=== PATIENT | female | born 1965 ===

== ENCOUNTER 2018-04-04 05:58 | Day surgery (SDC) | payer MEDICAID ==
[2018-03-31 09:36] VITALS: BMI 24.0
[2018-04-04] MEDS ORDERED: Lactated Ringer's 1,000 ML IV ONE (06:52)
--- NOTE | 2018-04-04 07:12 | CP.SDSHP ---
Same Day Surgery H & P - History Proposed Procedure: Right foot 5th digit excision of osteophyte Pre-Op Diagnosis: Painful right 5th digit - Previous Medical/Surgical History Pulmonary: Asthma - Allergies Allergies: Allergies Sulfa (Sulfonamide Antibiotics) Allergy (Verified 02/05/17 18:51) - Physical Exam Vital Signs: Vital Signs 04/04/18 04/04/18 06:31 06:34 Temperature 98.4 F Pulse Rate 74 74 Respiratory 20 Rate Blood Pressure 128/76 O2 Sat by Pulse 100 Oximetry - {Optional Preform as Required} Ortho: Other - Date & Time Date: 04/04/18 Time: 07:12 Short Stay Discharge - Short Stay Discharge Admitting Diagnosis/Reason for Visit: M25.774 / M25.775/ Disposition: HOME/ ROUTINE Referrals: Ishaan Lozano [Primary Care Provider] - Additional Instructions (Diet, Activity): -Patient in good/stable condition for discharge home. Pt to resume medications per medical reconciliation. Resume regular diet. Please keep dressing clean, dry, & intact to surgical site, use plastic bag over bandage for showering, wear post op shoe at all times when ambulating, call clinic if you see signs of infection (redness, swelling, malodor), please make an appointment to see Dr. Weber in office/clinic within 1 week for post-op check. Progress Note/Discharge Note with Instructions: Pt was seen and examined in [facility] Pt NPO status was confirmed All Pre-op testing and clearance was in the chart Pt has exhausted all conservative treatment at this time and is opting for surgical intervention Pt was explained procedure and post-operative course All pt's questions were answered to satisfaction No guarantees were made Pt understands all risks, benefits and complications of procedure Pt will follow-up with Dr. Weber
--- NOTE | 2018-04-04 07:14 | CP.PCM.PN ---
Subjective - Date & Time of Evaluation Date of Evaluation: 04/04/18 Time of Evaluation: 07:12 - Subjective Subjective: Podiatry [facility] note: Dr. Weber 52 year old female with PMHx of Asthma was seen and evaluated at bedside in [facility] prior to right foot 5th digit procedure. Patient reports that she has been NPO since 9 pm yesterday. Denies of any adverse reactions to anesthesia. Denies recent F/N/V/C/SOB/CP/headache/diarrhea/constipation. Denies of any other pedal complains. PMHx: Asthma PSHx: x 4 Allergies: Sulfa SHx: denies smoking, EtOH or illicit drug usage Objective - Vital Signs/Intake and Output Vital Signs (last 24 hours): Temp Pulse Resp BP Pulse Ox 98.4 F 74 20 128/76 100 04/04/18 06:31 04/04/18 06:34 04/04/18 06:31 04/04/18 06:31 04/04/18 06:31 - Constitutional Appears: Well, Non-toxic, No Acute Distress - Extremities Exam Additional comments: Bilateral LE focused exam: VASC: DP/PT pulses are palpable 2/4 B/L. Cap refill time: < 3 seconds to all digits. Skin temperature warm to cool from proximal to distal. no pitting or non -pitting edema noted DERM: no onen lesions, no inter digital maceration, nails are cut to hygienic length, no clinical suspicion of active infection NEURO: Epicritic and protective sensation intact ORTHO: mild tenderness on palpation of the 5th digit medially as well as laterally on the 4th digit, no pain during AROM and PROM at the AJ or MTPJ - Neurological Exam Neurological Exam: Alert, Awake, Oriented x3 - Psychiatric Exam Psychiatric exam: Normal Affect, Normal Mood Assessment and Plan - Assessment and Plan (Free Text) Assessment: 52 year old female with PMHx of Asthma was seen in [facility] prior to right foot 5th digit procedure. Plan: Pt was seen and examined in [facility] Pt NPO status was confirmed All Pre-op testing and clearance was in the chart Pt has exhausted all conservative treatment at this time and is opting for surgical intervention Pt was explained procedure and post-operative course All pt's questions were answered to satisfaction No guarantees were made Pt understands all risks, benefits and complications of procedure Pt will follow-up with Dr. Weber
[2018-04-04] MEDS ORDERED: Bupivacaine 0.5% Inj(30mL) IJ ONE ×2 (07:18→08:00)
[2018-04-04] MEDS ORDERED: Lidocaine 1% Inj (20ml) IJ ONE (07:18)
[2018-04-04] MEDS ORDERED: Sodium Chloride 0.9% 1,000 ML IV SCH (07:30)
[2018-04-04] MEDS ORDERED: Midazolam 2 MG/2 ML VIAL ONE (07:43)
[2018-04-04] MEDS ORDERED: Propofol 10 mg/ml Inj (20 ML) ONE (07:44)
[2018-04-04] MEDS ORDERED: ceFAZolin 2 GM in Sodium Chloride 0.9% 100 ML IVPB ONE (07:45)
[2018-04-04] MEDS ORDERED: Bupivacaine 0.5% Inj(30mL) ONE (07:47)
[2018-04-04] MEDS ORDERED: Lidocaine 2% Inj (20ml) IJ ONE (08:00)
[2018-04-04] MEDS ORDERED: Oxycodone/Acetaminophen 5/325 mg Tab PO PRN ×2 (08:26)
--- NOTE | 2018-04-04 08:30 | PCM.SURG1 ---
Surgeon's Initial Post Op Note - Surgeon's Notes Surgeon: Dr. Alexandre Weber DPM Cook Candy: Dr. Leandro Samaniego DPM PGY-2 Type of Anesthesia: IV Sedation, Local Anesthesia Administered By: Dr. Taya ASH Pre-Operative Diagnosis: Right foot 4th and 5th digit exastosis Operative Findings: See dictation. M: 4-0 Monocryl. I: 6 cc of 1:1 1% lidocaine plain:0.5% Marcaine plain - pre-op Post-Operative Diagnosis: Same Operation Performed: right foot 4th and 5th digit exostectomy Specimen/Specimens Removed: none Estimated Blood Loss: EBL {In ML}: 0 Blood Products Given: N/A Drains Used: No Drains Post-Op Condition: Good Date of Surgery/Procedure: 04/04/18 Time of Surgery/Procedure: 08:30
[2018-04-04] MEDS ORDERED: Lactated Ringer's 500 ML IV SCH (08:45)
[2018-04-04 09:40] VITALS: RESP 18; O2SAT 96
[2018-04-04 10:23] VITALS: BP 121/69; PULSE 89; TEMP 97.8
--- NOTE | 2018-04-06 01:42 | OP ---
PROCEDURE DATE: 04/04/[address] Leandro Samaniego, PGY-2 dictating on behalf of Alexandre Whitt DPM. PREOPERATIVE DIAGNOSES: 1. Left foot fourth digit exostosis, lateral aspect medial phalanx. 2. Left foot fifth digit exostectomy, medial aspect distal phalanx. POSTOPERATIVE DIAGNOSES: 1. Left foot fourth digit exostosis, lateral aspect medial phalanx. 2. Left foot fifth digit exostectomy, medial aspect distal phalanx. PROCEDURE PREFORMED: 1. Left fourth digit exostectomy. 2. Left fifth digit exostectomy. PRIMARY SURGEON: Alexandre Whitt DPM. SOCIAL STAFF WORKER: Leandro Samaniego, PGY-2. TYPE OF ANESTHESIA: MAC IV sedation with local. ANESTHESIA ADMINISTERED BY: Seamus Bain MD INDICATIONS: The patient is a 52-year-old female with the above stated diagnoses. The patient has exhausted all conservative outpatient options provided by Dr. Whitt to this point and is now needing surgical intervention. The patient signed the surgical consent after careful explanation of risks, benefits, complications, and potential alternatives of the post surgical procedures. No guarantees were either given or implied. All the patient's questions were answered to her satisfaction. PREPARATION: The patient's n.p.o. status was confirmed prior to bringing the patient to the operating room. The patient was brought into the operating room and placed on the operating room table in a supine position. A well-padded pneumatic tourniquet was applied in a supramalleolar position to the left ankle and set at 250 mgHg to be inflated once the procedure began. Once IV sedation was confirmed to have been achieved, the patient received 6 mL of 1:1 mixture of 0.5% Marcaine plain to 2% lidocaine plain in a local block type fashion to the left foot. The patient's left foot was then prepped and draped in the usual sterile manner. Tourniquet was inflated, and the procedure was began PROCEDURE: Left foot four and fifth exostectomy. Attention was then directed to the respective digit area of bony prominence, for the fourth digit this was mid-shaft of the middle phalanx lateral wall,for the fifth digit mid-shaft on the medial aspect of the distal phalanx. All steps for the following procedures were performed in sequence with no deviations between the respective digits. At this time, using a #15-blade a full-thickness incision measuring 1 cm was made overlying the bony prominence and extended down to periosteum with care being taken to identify, avoid, and retract all vital neurovascular structures. All bleeders were cauterized and ligated as needed. Tendinous structures were retracted away from midline of incision. At this time, full length periosteal incision was made in line with the skin incision and periosteal was retracted medially and laterally thus full exposing the was respective bony prominence. At this time, a side-cutting klaus was introduced and bony prominence was resected until all palpable dell was appreciated. All rough edges were smoothed down. Surgical site was then flushed with copious amount of sterile saline. Full-thickness skin reapproximation was performed using 4-0 Monocryl in a simple suture-type fashion. Surgical sites were then dressed with Xeroform, 4 x 4 gauze, Kerlix, and Remigio. POSTOPERATIVE CONDITION: The patient tolerated the anesthesia and procedures well and was escorted to the recovery room with vital signs stable and neurovascular status intact to the left foot and respective digit. The patient had no complaints, no complications. Leandro Samaniego DPM Alexandre Whitt DPM [place]
== END 2018-04-04 10:42 | disposition home or self-care (01) ==
LOC: H.OPSURG 05:58
PROVIDERS: ATTEND Podiatrist Foot & Ankle Surgery
DX: M25.775 Osteophyte, left foot (principal); D64.9 Anemia, unspecified; J44.9 Chronic obstructive pulmonary disease, unspecified; M89.9 Disorder of bone, unspecified
CPT/HCPCS: 28046; J0690; J2250; J2704; J3010; J7040; J7120